=== PATIENT | female | born 1980 | race Native Hawaiian/Other Pacific Islander ===

== ENCOUNTER 2017-11-20 13:00 | Emergency (ER) | payer BC ==
[~2017-11-20] VITALS: Ht 149.9 cm; Wt 48.0 kg
[~2017-11-20 13:00] MED LIST: NAPR550 PO; PREN0.01 PO; SENN1TAB11 PO
[2017-11-20 13:07] VITALS: BP 174/96; PULSE 67; RESP 16; TEMP 97.8; O2SAT 100
[2017-11-20 13:23] VITALS: BP 154/85; PULSE 68; RESP 18; O2SAT 100
[2017-11-20] MEDS ORDERED: SODIUM CHLOR 0.9% 1000 ML INJ 1,000 ML IV ONE (13:29)
[2017-11-20] MEDS ORDERED: diphenhydrAMINE HCL 50 MG/ML VIAL IVP ONE (13:30)
[2017-11-20] MEDS ORDERED: SODIUM CHLORIDE 0.9% FLUSH 10 ML FLUSH IVF PRN (13:30)
[2017-11-20] MEDS ORDERED: METOCLOPRAMIDE HCL 10 MG/2 ML VIAL IVP ONE (13:30)
--- NOTE | 2017-11-20 13:32 | PD ---
HPI Chief Complaint: Headache Time Seen by Provider: 13:29 Travel History International Travel<30 days: No Contact w/Intl Traveler<30days: No Traveled to known affect area: No History of Present Illness HPI 37-year-old female patient presents to the ER today because she has been having headaches, nausea, vomiting, abdominal pains, cough, sore throat, not feeling well, but denies any neck stiffness or or photophobia. She states that she does not usually get headaches like this. She states that there are is a coworker who also had similar symptoms. Modifying Factors: None Associated Signs & Symptoms: Headache, nausea, vomiting, cough, sore throat Risk Factors: Possible sick contact PFSH Past Medical History Medical History: Denies Significant Hx Influenza Vaccination: No ?: Not LMP: 4 DAYS Past Surgical History Surgical History: No Previous Surgery Social History Alcohol Use: Yes (occas) Tobacco Use: No Substance Use: No Allergies-Medications (Allergen,Severity, Reaction): Coded Allergies: No Known Allergies (Verified Adverse Reaction, Unknown, 11/20/17) Reported Meds & Prescriptions Reported Meds & Active Scripts Active Review of Systems Except as stated in HPI: all other systems reviewed are Neg Physical Exam Narrative GENERAL: Well-developed middle-aged female patient currently and mild distress. Awake and oriented 3. SKIN: Focused skin assessment warm/dry. HEAD: Atraumatic. Normocephalic. EYES: Pupils equal and round. No scleral icterus. No injection or drainage. ENT: No nasal bleeding or discharge. Mucous membranes pink and moist. NECK: Trachea midline. No JVD. Supple. CARDIOVASCULAR: Regular rate and rhythm. No murmur appreciated. RESPIRATORY: No accessory muscle use. Clear to auscultation. Breath sounds equal bilaterally. GASTROINTESTINAL: Abdomen soft, non-tender, nondistended. Hepatic and splenic margins not palpable. MUSCULOSKELETAL: No obvious deformities. No clubbing. No cyanosis. No edema. NEUROLOGICAL: Awake and alert. No obvious cranial nerve deficits. Motor grossly within normal limits. Normal speech. PSYCHIATRIC: Appropriate mood and affect; insight and judgment normal. Data Data Last Documented VS Vital Signs Date Time Temp Pulse Resp B/P (MAP) Pulse Ox O2 Delivery O2 Flow Rate FiO2 11/20/17 14:22 64 16 131/75 (93) 98 Room Air 11/20/17 13:07 97.8 Orders Orders Complete Blood Count With Diff (11/20/17 13:29) Comprehensive Metabolic Panel (11/20/17 13:29) Group A Rapid Strep Screen (11/20/17 13:29) Ecg Monitoring (11/20/17 13:29) Iv Access Insert/Monitor (11/20/17 13:29) Oximetry (11/20/17 13:29) Sodium Chloride 0.9% Flush (Ns Flush) (11/20/17 13:30) Diphenhydramine Inj (Benadryl Inj) (11/20/17 13:30) Metoclopramide Inj (Reglan Inj) (11/20/17 13:30) Sodium Chlor 0.9% 1000 Ml Inj (Ns 1000 M (11/20/17 13:29) Influenzae A/B Antigen (11/20/17 13:29) Strep Culture (Group A) (11/20/17 13:40) Potassium Chloride Eff (K-Lyte Cl Eff) (11/20/17 14:45) Ed Discharge Order (11/20/17 14:44) Labs Laboratory Tests Test 11/20/17 13:40 White Blood Count 8.1 TH/MM3 Red Blood Count 4.53 MIL/MM3 Hemoglobin 12.7 GM/DL Hematocrit 37.7 % Mean Corpuscular Volume 83.3 FL Mean Corpuscular Hemoglobin 28.0 PG Mean Corpuscular Hemoglobin Concent 33.6 % Red Cell Distribution Width 11.4 % Platelet Count 356 TH/MM3 Mean Platelet Volume 8.3 FL Neutrophils (%) (Auto) 58.1 % Lymphocytes (%) (Auto) 28.8 % Monocytes (%) (Auto) 4.6 % Eosinophils (%) (Auto) 6.5 % Basophils (%) (Auto) 2.0 % Neutrophils # (Auto) 4.7 TH/MM3 Lymphocytes # (Auto) 2.3 TH/MM3 Monocytes # (Auto) 0.4 TH/MM3 Eosinophils # (Auto) 0.5 TH/MM3 Basophils # (Auto) 0.2 TH/MM3 CBC Comment DIFF FINAL Differential Comment Blood Urea Nitrogen 10 MG/DL Creatinine 0.50 MG/DL Random Glucose 93 MG/DL Total Protein 8.4 GM/DL Albumin 3.9 GM/DL Calcium Level 8.9 MG/DL Alkaline Phosphatase 43 U/L Aspartate Amino Transf (AST/SGOT) 15 U/L Alanine Aminotransferase (ALT/SGPT) 17 U/L Total Bilirubin 0.4 MG/DL Sodium Level 137 MEQ/L Potassium Level 3.2 MEQ/L Chloride Level 103 MEQ/L Carbon Dioxide Level 28.1 MEQ/L Anion Gap 6 MEQ/L Estimat Glomerular Filtration Rate 137 ML/MIN MDM Medical Decision Making Medical Screen Exam Complete: Yes Emergency Medical Condition: Yes Medical Record Reviewed: Yes Interpretation(s) Laboratory Tests Test 11/20/17 13:40 Red Cell Distribution Width 11.4 % (11.6-17.2) Eosinophils (%) (Auto) 6.5 % (0.0-4.0) Eosinophils # (Auto) 0.5 TH/MM3 (0-0.4) Total Protein 8.4 GM/DL (6.4-8.2) Alkaline Phosphatase 43 U/L (45-117) Potassium Level 3.2 MEQ/L (3.5-5.1) Differential Diagnosis Viral syndrome versus migraine headaches versus dehydration Narrative Course Vital signs are stable in the ER. Patient is not exhibiting any meningeal signs. Patient was given IV fluids, Reglan, and Benadryl in the ER. Lab work shows mild hypokalemia but was fairly unremarkable otherwise. Rapid strep and influenza testing was negative. Symptoms are most indicative of a viral syndrome, patient has sick contact at work as well. On reevaluation at 2:45 PM , she is feeling improved. She states her headache has gone down to 1 or 2 out of 10. At this point, my plan would be to release her with follow-up to primary care physician as needed. Return for worsening in symptoms as necessary. The plan has been discussed with her and she states understanding. Diagnosis Primary Impression: Viral syndrome Med/Other Pt SpecificInfo: Prescription(s) given Scripts Acetaminophen (Tylenol) 325 Mg Tab 650 MG PO Q6H Y for PAIN SCALE 1 TO 10, #15 TAB 0 Refills Prov: Estela Ventura MD 11/20/17 Promethazine (Phenergan) 25 Mg Tablet 25 MG PO Q6H Y for NAUSEA OR VOMITING, #7 TAB 0 Refills Prov: Estela Ventura MD 11/20/17 Disposition: 01 DISCHARGE HOME Condition: Stable Estela Ventura MD Nov 20, 2017 13:32
[2017-11-20 13:55] VITALS: RESP 16; O2SAT 100
[2017-11-20 14:18] LABS: AUTOMATED NEUTROPHIL # 4.7 TH/MM3 (1.8-7.7); BASOPHIL # 0.2 TH/MM3 (0-0.2); CHLORIDE 103 MEQ/L (98-107); EOSINOPHIL # 0.5 TH/MM3 (0-0.4); EOSINOPHIL % 6.5 % (0.0-4.0); HEMATOCRIT 37.7 % (35.0-46.0); HEMOGLOBIN 12.7 GM/DL (11.6-15.3); LYMPH % 28.8 % (9.0-44.0); LYMPHOCYTE # 2.3 TH/MM3 (1.0-4.8); MEAN CELL VOLUME 83.3 FL (80.0-100.0); MEAN CORPUSCULAR HGB CONC 33.6 % (32.0-36.0); MEAN PLATELET VOLUME 8.3 FL (7.0-11.0); MONO % 4.6 % (0.0-8.0); MONOCYTE # 0.4 TH/MM3 (0-0.9); NEUT % 58.1 % (16.0-70.0); PLATELET COUNT 356 TH/MM3 (150-450); RED BLOOD COUNT 4.53 MIL/MM3 (4.00-5.30); RED CELL DISTRIBUTION WIDTH 11.4 % (11.6-17.2); SODIUM (NA) 137 MEQ/L (136-145); WHITE BLOOD COUNT 8.1 TH/MM3 (4.0-11.0)
[2017-11-20 14:21] LABS: CALCIUM 8.9 MG/DL (8.5-10.1)
[2017-11-20 14:22] VITALS: BP 131/75; PULSE 64; RESP 16; O2SAT 98
[2017-11-20 14:22] LABS: ALBUMIN 3.9 GM/DL (3.4-5.0); BICARBONATE 28.1 MEQ/L (21.0-32.0); BLOOD UREA NITROGEN 10 MG/DL (7-18); GLUCOSE,RANDOM 93 MG/DL (74-106)
[2017-11-20 14:25] LABS: ALT (GPT) 17 U/L (10-53); AST (GOT) 15 U/L (15-37); GLOMERULAR FILTRATION RATE 137 ML/MIN (>89)
[2017-11-20 14:27] LABS: TOTAL BILIRUBIN ADULT 0.4 MG/DL (0.2-1.0); TOTAL PROTEIN 8.4 GM/DL (6.4-8.2)
[2017-11-20 14:28] LABS: ALKALINE PHOSPHATASE 43 U/L (45-117)
[2017-11-20] MEDS ORDERED: POTASSIUM CHLORIDE 25 MEQ EFFERVESCENT TAB PO ONE (14:45)
[2017-11-20] MEDS ORDERED: PROM25TA10 PO (14:47)
[2017-11-20] MEDS ORDERED: TYLE325T PO (14:47)
== END 2017-11-20 15:10 | disposition home or self-care (01) ==
LOC: PHED 13:00
DX: B34.9 Viral infection, unspecified (principal); E87.6 Hypokalemia
CPT/HCPCS: 80053; 85025; 86403; 87081; 87804; 87880; 96361; 96374; 96375; 99284; J1200; J2765; J7030